=== PATIENT | female | born 1990 | race Hispanic/Latino ===

== ENCOUNTER 2024-05-20 06:26 | Day surgery (SDC) | payer OTHER ==
[2024-05-20] VITALS (13 sets, daily range): BP systolic 106–130; BP diastolic 70–82; PULSE 69–93; RESP 12–20
[~2024-05-20] VITALS: Ht 165.1 cm; Wt 104.3 kg
[2024-05-20] MEDS ORDERED: TIRZ7.5P SQ (07:14)
[2024-05-20] MEDS ORDERED: ERGO500093 PO (07:14)
[2024-05-20] MEDS ORDERED: TRAZ-185 PO (07:14)
[2024-05-20] MEDS ORDERED: GLIP10TA19 PO (07:14)
[2024-05-20] MEDS ORDERED: FOLI-74 PO (07:14)
[2024-05-20] MEDS ORDERED: LISI2.5T13 PO (07:14)
[2024-05-20] MEDS ORDERED: PANT40TA54 PO (07:14)
[2024-05-20] MEDS: 0.9%NACL 1000ML 1,000 ML IV ONE (07:26)
[2024-05-20] MEDS ORDERED: PROPOFOL 10 MG/ML 20ML VIAL IV ONE ×3 (07:38→07:43)
== END 2024-05-20 08:55 | disposition home or self-care (01) ==
LOC: DAH 06:26 → ENDO 06:26
PROVIDERS: ATTEND Surgery
DX: R10.10 Upper abdominal pain, unspecified (principal); K29.50 Unspecified chronic gastritis without bleeding; K44.9 Diaphragmatic hernia without obstruction or gangrene; K21.9 Gastro-esophageal reflux disease without esophagitis; E66.01 Morbid (severe) obesity due to excess calories; I10 Essential (primary) hypertension; E11.9 Type 2 diabetes mellitus without complications; Z90.721 Acquired absence of ovaries, unilateral; Z68.37 Body mass index [BMI] 37.0-37.9, adult; Z79.899 Other long term (current) drug therapy
CPT/HCPCS: 81025 ×2; 43239; 82948; J7030; J2704 ×2; A4620; A4215 ×2; A4223; A4222; A4221; A4663; A4606; J3490

== ENCOUNTER 2024-09-15 14:00 | Inpatient (IN) | payer OTHER ==
[~2024-09-15] VITALS: Ht 165.1 cm; Wt 100.2 kg
[~2024-09-15 14:00] MED LIST: ERGO500093 PO; FOLI-74 PO; PANT40TA54 PO; TIRZ7.5P SQ; TRAZ-185 PO
[2024-09-17] MEDS ORDERED: MULT1CAP57 PO (16:24)
[2024-09-17] MEDS ORDERED: METO-391 PO (16:56)
[2024-09-17] MEDS ORDERED: CETI10TA57 PO (16:56)
[2024-09-17] MEDS ORDERED: OLME20TA68 PO (16:56)
[2024-09-18] VITALS (25 sets, daily range): BP systolic 118–146; BP diastolic 63–88; PULSE 57–103; RESP 13–20; TEMP 97.2–98
[2024-09-18] MEDS: ceFAZolin SODIUM 2 GM VIAL ONE (08:42)
[2024-09-18] MEDS: 0.9%NACL 1000ML 1,000 ML IV ONE (08:43)
[2024-09-18] MEDS: metRONIDazole 500MG/100ML BAG 200 ML ONE (08:43)
[2024-09-18 09:05] LABS: BASOPHILS # (AUTO) 0.01 K/uL (0.00-0.20); BASOPHILS % (AUTO) 0.2 % (0.0-5.0); EOSINOPHILS # (AUTO) 0.09 K/uL (0.00-0.70); EOSINOPHILS % (AUTO) 1.6 % (0.0-8.0); HEMATOCRIT 40.6 % (36-48); IMMATURE GRANULOCYTE ABSOLUTE 0.02 K/uL (0-1); LYMPHOCYTES % (AUTO) 35.4 % (21.0-51.0); MEAN CORPUSCULAR HEMOGLOBIN 28.9 pg (27.0-33.0); MEAN CORPUSCULAR HGB CONC 33.5 g/dL (32.0-36.0); MEAN CORPUSCULAR VOLUME 86.4 fL (79-99); MONOCYTES # (AUTO) 0.5 K/uL (0.1-1.0); MONOCYTES % (AUTO) 9.2 % (3.0-13.0); NEUTROPHILS % (AUTO) 53.2 % (40.0-77.0); PLATELET COUNT (AUTO) 217 K/uL (130-400); RED CELL DISTRIBUTION WIDTH 13.2 % (11.0-15.5); WHITE BLOOD COUNT (AUTO) 5.5 K/uL (4.8-10.8)
[2024-09-18 09:23] LABS: CREATININE 0.7 mg/dL (0.5-1.0)
[2024-09-18 09:26] LABS: INR 1.09 (0.85-1.15); PROTHROMBIN TIME 11.7 SEC (9.6-11.6)
[2024-09-18 09:27] LABS: PARTIAL THROMBOPLASTIN TIME 27.6 SEC (26.3-35.5)
[2024-09-18 09:28] LABS: ALBUMIN 3.7 g/dL (3.5-5.0); BILIRUBIN,TOTAL 0.5 mg/dL (0.2-1.0)
[2024-09-18] MEDS ORDERED: ondanSETRON 4MG INJ ONE (15:01)
[2024-09-18] MEDS ORDERED: rocuRONium bROMide 10MG/1ML 5ML VL ONE (15:01)
[2024-09-18] MEDS ORDERED: proPOFol 10 MG/ML 20ML VIAL IV ONE (15:01)
[2024-09-18] MEDS ORDERED: SUCCINYLCHOLINE CHLORIDE 20 MG/ML 10 ML VIAL ONE (15:01)
[2024-09-18] MEDS ORDERED: dexaMETHasone SOD PHOSPHATE 10MG/ML 1ML VIAL ONE (15:01)
[2024-09-18] MEDS ORDERED: GLYCOPYRROLATE 0.2 MG/ML 5 ML VIAL ONE ×2 (15:01→17:39)
[2024-09-18] MEDS ORDERED: LIDOCAINE PF 100MG/5ML (2%) SYRINGE 5ML ONE (15:01)
[2024-09-18] MEDS ORDERED: NEOSTIGMINE METHYLSULFATE 1MG/ML IV ONE (15:01)
[2024-09-18] MEDS ORDERED: MIDAZOLAM HCL 1 MG/ML 2ML VIAL ONE (15:02)
[2024-09-18] MEDS ORDERED: FENTanyl CITRate PF 50 MCG/1 ML 2ML VIAL ONE (15:02)
[2024-09-18] MEDS ORDERED: BUPIvacaine/PF 0.5% 30ML VIAL ONE (15:20)
[2024-09-18] MEDS: INDOCYANINE GREEN 25 MG VIAL IJ ONE (15:21)
[2024-09-18] MEDS ORDERED: FENTanyl CITRate PF 50 MCG/1 ML 5ML AMP IV ONE (16:07)
--- NOTE | 2024-09-18 17:38 | OP ---
Operative Note: DATE OF PROCEDURE: 09/18/24 SURGEON: JAQUELIN CLAUDIO MD [employer] APPLICATION DEVELOPER: Andre Claudio MD Pac ANESTHESIA: General and local ANESTHESIOLOGIST/DERMATOLOGY PHYSICIAN ASSISTANT: [facility] [place] PREOPERATIVE DIAGNOSIS: Morbid obesity and associated comorbid conditions including significant gastroesophageal reflux POSTOPERATIVE DIAGNOSIS: As above SYNOPSIS: Marbella-en-Y gastric bypass performed without incident PROCEDURE: 1. Robotic assisted Marbella-en-Y gastric bypass to greater than 150 cm 2. EGD ESTIMATED BLOOD LOSS: Minimal, less than 30 cc INDICATIONS: As above DESCRIPTION OF PROCEDURE: After sent a precaution per pressures were undertaken the Veress needle and optical trocar used to enter the abdominal cavity. All other instruments were placed under direct vision. The robotic system was docked in the standard fashion. We will begin our dissection by ensuring that the small bowel would reach up to the area of the proposed gastric pouch once we measured this and found that it would reach without significant tension we proceeded with the remainder of the case. We began by creating a gastric pouch. The created a window between the neurovascular bundle of the lesser curve and the gastric wall and entered into the lesser sac. A linear stapler with a staple line reinforcement is used to cut from the lesser curve and a curvilinear fashion towards the angle of his creating our gastric pouch. We then turned our attention to the ligament of Treitz and identified the proxim al jejunum. We counted distally approximately 75-100 cm to an area of small bowel that would reach up to the pouch without tension. The small bowel was sutured to the gastric pouch in anticipation of future stapled anastomosis. The loop of bowel was divided to create a cut end of the Marbella limb and the cut end of the below pancreatic limb. The Marbella limb was counted down approximately 150 cm admitted to the distal cut end of the biliopancreatic limb. We then began creating our anastomosis. We will begin with the gastrojejunal anastomosis. A gastrotomy and enterotomy were created a linear stapler was used to create an anastomosis of appropriate size. The defect left behind by the stapler was closed in two layers including placement of an omental patch. This was verified by EGD which my partner was utilizing while I remained at the robotic console. We are able to see that the anastomosis was widely patent and that the gastric and jejunal mucosa were healthy and well perfused. Was no sign of leak problem on leak test. We then turned our attention to the jejunal jejunostomy. To intravenous were created in her symptoms with the use good anastomosis the appropriate size and shape. The defect man by the staple was then closed in two layers. We then closed the mesenteric defect between the jejunojejunostomy limbs of intestine as well as between the Marbella limb mesentery and the transverse colon mesentery. These were closed with permanent suture. All instrument counts were verified as correct including needles and sponges prior to end of the case. The patient tolerated the procedure well and was prepared for extubation and transfer the patient's stable condition. JAQUELIN CLAUDIO MD Sep 18, 2024 17:38
--- NOTE | 2024-09-18 17:52 | PN ---
GENERAL SURGERY PROGRESS NOTE Date/Time Patient Seen: [09/18/24 1800 ] Problem List: [ ] Interval History: [POD#0. Pain tolerable w prn meds. ] Current Medications Medications (Trade) Dose Ordered Sig/Carlos Route Start Time Stop Time Status Last Admin Dose Admin Enoxaparin Sodium (Lovenox) 30 mg Q12H SQ 09/18/24 18:00 10/18/24 17:59 Famotidine (Pepcid 20mg Vial) 20 mg BID IV 09/18/24 21:00 10/18/24 20:59 Lactated Ringer's 1,000 ml @ 150 mls/hr Q6H40M IV 09/18/24 18:00 10/18/24 17:59 UNV Physical Examination: GENERAL: [No acute distress.] Abd Exam: I c,d,i, Dermabond in place Laboratory: [ ] Hematology Labs: Test 09/18/24 08:45 Range/Units White Blood Count 5.5 4.8-10.8 K/uL Red Blood Count 4.70 4.00-5.50 MIL/uL Hemoglobin 13.6 12.0-16.0 g/dL Hematocrit 40.6 36-48 % Mean Corpuscular Volume 86.4 79-99 fL Mean Corpuscular Hemoglobin 28.9 27.0-33.0 pg Mean Corpuscular Hemoglobin Concent 33.5 32.0-36.0 g/dL Red Cell Distribution Width 13.2 11.0-15.5 % Platelet Count 217 130-400 K/uL Mean Platelet Volume 11.7 H 7.5-10.5 fL Immature Granulocyte % (Auto) 0.4 0-1 % Neutrophils (%) (Auto) 53.2 40.0-77.0 % Lymphocytes (%) (Auto) 35.4 21.0-51.0 % Monocytes (%) (Auto) 9.2 3.0-13.0 % Eosinophils (%) (Auto) 1.6 0.0-8.0 % Basophils (%) (Auto) 0.2 0.0-5.0 % Neutrophils # (Auto) 3.0 1.8-7.7 K/uL Lymphocytes # (Auto) 2.0 1.0-4.8 K/uL Monocytes # (Auto) 0.5 0.1-1.0 K/uL Eosinophils # (Auto) 0.09 0.00-0.70 K/uL Basophils # (Auto) 0.01 0.00-0.20 K/uL Absolute Immature Granulocyte (auto 0.02 0-1 K/uL Nucleated Red Blood Cells 0.0 0.0-0.19 % Chemistry Labs: Test 09/18/24 08:45 Range/Units Sodium Level 140 136-145 mmol/L Potassium Level 5.0 3.5-5.1 mmol/L Chloride Level 104 101-111 mmol/L Carbon Dioxide Level 30 21-32 mmol/L Blood Urea Nitrogen 13 7-18 mg/dL Creatinine 0.7 0.5-1.0 mg/dL Glomerular Filtration Rate Calc 115 >90 mL/min Random Glucose 80 70-105 mg/dL Total Calcium 9.2 8.5-10.1 mg/dL Total Bilirubin 0.5 0.2-1.0 mg/dL Aspartate Amino Transf (AST/SGOT) 34 10-37 U/L Alanine Aminotransferase (ALT/SGPT) 54 12-78 U/L Alkaline Phosphatase 50 50-136 U/L Total Protein 8.0 6.0-8.3 g/dL Albumin 3.7 3.5-5.0 g/dL Serum Test, Qualitative NEGATIVE NEGATIVE Coagulation Labs: Test 09/18/24 08:45 Range/Units Prothrombin Time 11.7 H 9.6-11.6 SEC Prothromb Time International Ratio 1.09 0.85-1.15 Activated Partial Thromboplast Time 27.6 26.3-35.5 SEC Diagnostics / Radiology: [Copy/Paste Echos/Imaging Report here] Impression and Plan: [Plan is for dc home in the next day or 2, as long as pt tolerating po, ambulatory, and pain under control.] JAQUELIN CLAUDIO MD Sep 18, 2024 17:52
[2024-09-18] MEDS ORDERED: PROCHLORPERAZINE 10MG/2ML INJ IV PRN (18:00)
[2024-09-18] MEDS: ENOXAPARIN SODIUM 30 MG/0.3 ML SQ SCH (18:00)
[2024-09-18] MEDS: LACTATED RINGERS 1000ML 1,000 ML IV SCH (18:00)
[2024-09-18] MEDS: acetaMINOPHEN 100 ML ONE (18:32)
[2024-09-18] MEDS: ketOROlac 30MG VIAL (30MG/ML) ONE (18:34)
[2024-09-18] MEDS: hydroMORPHone 1 MG INJ ONE (18:45)
[2024-09-18] MEDS: HYDROcod/acetaMINOPHEN 7.5/325 MG 15 ML UDCUP PO PRN (20:49)
[2024-09-18] MEDS: FAMOTIDINE 20MG VIAL IV SCH (20:56)
--- NOTE | 2024-09-18 22:00 | NUR ---
void up to void to bathroom, voided without discomfort clear yellow urine, ambulated 3 times around nurses station, back to bed,tolerated well, back to bed, incision x5 abdomen d/i, ble scds in place, ivf infusing well, encourage deep breathing exercises
[2024-09-18] MEDS: hydroMORPHone 0.5 MG SYG (0.5MG/0.5ML) IVP PRN (22:23)
[2024-09-19] VITALS (7 sets, daily range): BP systolic 112–137; BP diastolic 48–137; PULSE 63–93; RESP 17–20; TEMP 97.6–98.2; O2SAT 99
--- NOTE | 2024-09-19 08:02 | PN ---
GENERAL SURGERY PROGRESS NOTE Date/Time Patient Seen: [September 19, 2024 at 8:00 a.m. ] Problem List: [ ] Interval History: [The patient as a pleasant 34-year-old female status post robotic assisted gastric bypass with intraoperative endoscopy. The patient tolerated the procedure well. The patient is awake alert and oriented x3 resting comfortably in bed. The patient is not in acute distress. The patient endorses pain that is tolerable with p.r.n. medication. The patient is ambulating without assistance. The patient is burping. Denies flatus. Tolerating a clear liquid diet very well without any upper lower GI symptoms. The patient is clinically stable. Overall happy with the procedure and likely ready to go home today. ] Current Medications Medications (Trade) Dose Ordered Sig/Carlos Route Start Time Stop Time Status Last Admin Dose Admin Enoxaparin Sodium (Lovenox) 30 mg Q12H SQ 09/18/24 18:00 10/18/24 17:59 09/19/24 06:16 30 MG Famotidine (Pepcid 20mg Vial) 20 mg BID IV 09/18/24 21:00 10/18/24 20:59 09/18/24 20:56 20 MG Lactated Ringer's 1,000 ml @ 150 mls/hr Q6H40M IV 09/18/24 18:00 10/18/24 17:59 Metoprolol Succinate (TopROL XL) 50 mg DAILY PO 09/19/24 09:00 10/19/24 08:59 Physical Examination: GENERAL: [No acute distress.] HEAD: [Normal with no signs of head trauma.] EYES: [PERRLA, EOMI, conjunctiva and sclera normal.] ENT: [Hearing grossly intact, normal oropharynx.] NECK: [Supple without JVD. There is no tenderness, lymphadenopathy, or masses. No thyromegaly. Normal carotid upstrokes without bruits.] LUNGS: [Clear breath sounds bilaterally. There are right basilar rales one third of the way up the chest. No wheezes, or rhonchi.] HEART: [Normal rate and rhythm. Normal S1 and S2 without mumurs, gallop or rub.] VASC: [Peripheral pulses +2 bilaterally.] ABD: [Bowel sounds normal, soft, nontender, no masses, no organomegaly. No audible bruits.] : [Not examined] LYMPH: [No lymphadenopathy noted.] EXT: [No clubbing, cyanosis or edema.] SKIN: [No rashes or lesions noted.] NEURO: [Awake, alert, and oriented x3. No focal sensory or strength deficits noted.] Vital Signs (last 8hr) Date Time Temp Pulse Resp B/P (MAP) Pulse Ox O2 Delivery O2 Flow Rate FiO2 09/19/24 04:00 97.5 66 20 137/69 98 Room Air 09/19/24 01:15 98.1 74 20 112/48 97 Room Air 09/19/24 00:15 98.1 64 20 130/75 97 Room Air 09/19/24 00:00 98.1 93 18 126/63 97 Room Air Laboratory: [ ] Hematology Labs: Test 09/18/24 08:45 Range/Units White Blood Count 5.5 4.8-10.8 K/uL Red Blood Count 4.70 4.00-5.50 MIL/uL Hemoglobin 13.6 12.0-16.0 g/dL Hematocrit 40.6 36-48 % Mean Corpuscular Volume 86.4 79-99 fL Mean Corpuscular Hemoglobin 28.9 27.0-33.0 pg Mean Corpuscular Hemoglobin Concent 33.5 32.0-36.0 g/dL Red Cell Distribution Width 13.2 11.0-15.5 % Platelet Count 217 130-400 K/uL Mean Platelet Volume 11.7 H 7.5-10.5 fL Immature Granulocyte % (Auto) 0.4 0-1 % Neutrophils (%) (Auto) 53.2 40.0-77.0 % Lymphocytes (%) (Auto) 35.4 21.0-51.0 % Monocytes (%) (Auto) 9.2 3.0-13.0 % Eosinophils (%) (Auto) 1.6 0.0-8.0 % Basophils (%) (Auto) 0.2 0.0-5.0 % Neutrophils # (Auto) 3.0 1.8-7.7 K/uL Lymphocytes # (Auto) 2.0 1.0-4.8 K/uL Monocytes # (Auto) 0.5 0.1-1.0 K/uL Eosinophils # (Auto) 0.09 0.00-0.70 K/uL Basophils # (Auto) 0.01 0.00-0.20 K/uL Absolute Immature Granulocyte (auto 0.02 0-1 K/uL Nucleated Red Blood Cells 0.0 0.0-0.19 % Chemistry Labs: Test 09/18/24 08:45 Range/Units Sodium Level 140 136-145 mmol/L Potassium Level 5.0 3.5-5.1 mmol/L Chloride Level 104 101-111 mmol/L Carbon Dioxide Level 30 21-32 mmol/L Blood Urea Nitrogen 13 7-18 mg/dL Creatinine 0.7 0.5-1.0 mg/dL Glomerular Filtration Rate Calc 115 >90 mL/min Random Glucose 80 70-105 mg/dL Total Calcium 9.2 8.5-10.1 mg/dL Total Bilirubin 0.5 0.2-1.0 mg/dL Aspartate Amino Transf (AST/SGOT) 34 10-37 U/L Alanine Aminotransferase (ALT/SGPT) 54 12-78 U/L Alkaline Phosphatase 50 50-136 U/L Total Protein 8.0 6.0-8.3 g/dL Albumin 3.7 3.5-5.0 g/dL Serum Test, Qualitative NEGATIVE NEGATIVE Coagulation Labs: Test 09/18/24 08:45 Range/Units Prothrombin Time 11.7 H 9.6-11.6 SEC Prothromb Time International Ratio 1.09 0.85-1.15 Activated Partial Thromboplast Time 27.6 26.3-35.5 SEC Impression and Plan: [Postoperative day one. The patient is progressing well. We will continue to monitor and treat pain as needed. GI/DVT prophylaxis recommended encouraged. The patient was slow to progress due to incisional pain. We will continue to monitor for the next 6 hours and continued to ambulates in cycle pain medications. We will call later today to assess level of pain prior to discharge. Incision care, hydration, activity and dietary restrictions discussed with the patient. The patient understands and agrees. Patient may advanced to full liquid diet and resume home medications. The plan is to discharge the patient home today in the next 6-8 hours. The patient understands and agrees. We will call in for orders. Postoperative medication a follow up appointment established by my office staff. Thank you.] EMILE SHUKLA Sep 19, 2024 08:02
[2024-09-19] MEDS: metOPROLol sucCINATE 50 MG TAB.SR.24H PO SCH (09:40)
--- NOTE | 2024-09-19 09:45 | NUR ---
Patient observed ambulating in the halls no safety concerns observed. DC PT.
--- NOTE | 2024-09-19 11:39 | NUR ---
Nutrition consult per Pt bariatric Reviewed labs, notes, and medications. Pt reported NKFA, PO of <50%, with gas and belching, has bariatric MVI, denied N/V, saw RD this summer, already spoke to the hardware installation coordinator, has been walking around, has all education from dietitian, is taking vit. D via prescription. RD reviewed educational material for post-op diet recommendations. Pt was informed of importance of lifelong vitamin/mineral supplementation, choosing protein first during meals (pt was educated on higher protein requirements), choosing low calorie, sugar free, carbonated free and caffeine beverages. RD also informed pt on lifelong commitment to exercise and dietary recommendations for optimal success post surgery. RD encouraged getting blood work every 3 to 6 months, including B-vitamins, Pt verbalized understanding. RD informed Pt on moving around after procedure to prevent DVT, Pt verbalized understanding. Pt was encouraged to contact RD as questions arise and to attend support groups. Fair compliance suspected. Pt will benefit from outpatient bariatric dietitian follow up post procedure. Pt to follow up with PCP for labs. Recommendations: -Continue phase 1 bariatric diet for 1 week -Monitor electrolytes -Monitor diet tolerance -Monitor BM -Monitor wts -Monitor PO intake -Recommend Pt to follow up with PCP -Monitor goals of care RD available for consult per protocol Addendum: 09/19/24 at [address] Amended: Links added.
--- NOTE | 2024-09-19 13:08 | NUR ---
SHOWER PATIENT REQUESTING TO SHOWER. PATIENT STATED ABLE TO SHOWER ON HER OWN. OFFERRED TO ASSIST TO PREVENT ANY FALLS, PATIENT REFUSED. DENIES ANY DIZZINESS AND ABLE TO AMBULATED INDEPENDENTLY. ADVISED PATIENT TO CONTACT NURSING USING CALL [facility] IN RESTROOM IF NEEDING ASSISTANCE. PT VOICED UNDERSTANDING. PROVIDED WITH SUPPLIES AND CHANGED SHEETS. WILL CONTINUE TO MONITOR.
--- NOTE | 2024-09-19 13:46 | NUR ---
DCP CM SPOKE TO PT INITIAL ASSESSMENT DONE. PATIENT IS INDEPENDENT PRIOR TO SURGERY, LIVES AT HOME ALONE. DENIES ANY OTHER EQUIPMENT/SERVICES. FEELS SAFE TO GO BACK HOME, STILL WORK AND DRIVE, MOTHER ABLE TO ASSIST WITH TRANSPORTATION AND NEEDS NECESSARY. DC PLAN TO HOME ONCE STABLE. CM TO CONTINUE TO FOLLOW UP. Addendum: 09/19/24 at 1347 by DARVIN CLAUDIO LVN CM Amended: Links added.
[2024-09-19] MEDS: ondanSETRON 4MG INJ IVP PRN (16:00)
[2024-09-19] MEDS: ketOROlac 15MG/ML VIAL (15MG/ML) IV PRN (16:00)
--- NOTE | 2024-09-19 16:08 | NUR ---
ABDOMINAL PAIN Patient having gas pain in abdomen, some nausea. Administered prn pain medication and prn zofran.
--- NOTE | 2024-09-19 16:51 | NUR ---
DISCHARGE DISCHARGE ORDERS FOR PATIENT TO BE DISCHARGED HOME OBTAINED. DISCHARGE INSTRUCTIONS AND DOCUMENTATION GIVEN TO PATIENT AT BEDSIDE. VOICED UNDERSTANDING. IV DISCONTINUED BY MELL WONG RN. NO S/S OF INFECTION NOTED. PATIENT TOLERATED WELL. BANDS REMOVED. PATIENT PENDING TRANSPORTATION.
--- NOTE | 2024-09-19 17:17 | NUR ---
DISCHARGE PATIENT LEFT VIA WHEELCHAIR, ACCOMPANIED BY MOTHER AND EFFICIENCY ENGINEER. NO S/S OF DISTRESS NOTED.
== END 2024-09-19 17:20 | disposition home or self-care (01) | DRG 621 ==
LOC: DAHIP 09-18 07:48 → 4AH 09-18 19:30
PROVIDERS: ADMIT Surgery; ATTEND Surgery
PROC: 0DJ08ZZ Inspection of Upper Intestinal Tract, Via Natural or Artificial Opening Endoscopic (ICD-10-PCS; 2024-09-18)
PROC: 0D164ZA Bypass Stomach to Jejunum, Percutaneous Endoscopic Approach (ICD-10-PCS; principal; 2024-09-18 15:26)
PROC: 8E0W4CZ Robotic Assisted Procedure of Trunk Region, Percutaneous Endoscopic Approach (ICD-10-PCS; 2024-09-18 15:26)
DX: E66.01 Morbid (severe) obesity due to excess calories (principal); K21.9 Gastro-esophageal reflux disease without esophagitis; E11.9 Type 2 diabetes mellitus without complications; Z68.36 Body mass index [BMI] 36.0-36.9, adult; Z79.899 Other long term (current) drug therapy; Z90.49 Acquired absence of other specified parts of digestive tract
CPT/HCPCS: 36415; 43235; 80053; 84703; 85025; 85610; 85730; 86850; 86900; 86901; G0378; J0330; J1100; J1171; J1650; J1885; J2003; J2250; J2405; J2704; J2710; J3010; J3490; J7030; J7120; A4215; A4216; A4221; A4222; A4223; A4600; A4663; A4930; C1769; J0665; J0690